=== PATIENT | male | born 2000 | race Two or more races ===

== ENCOUNTER 2018-06-16 19:22 | Emergency (ER) | payer SELFPAY ==
[~2018-06-16] VITALS: Ht 170.2 cm; Wt 54.0 kg
[2018-06-16] MEDS ORDERED: NKM (19:45)
[2018-06-16 19:49] VITALS: BP 103/62
[2018-06-16] MEDS ORDERED: TEMOVATE15 GM TOP (20:27)
[2018-06-16 20:30] VITALS: BP 103/62
--- NOTE | 2018-06-17 14:52 | Emergency Room Report ---
History of Present Illness General Chief Complaint: Skin Rash/Abscess Source: Patient Present Illness HPI 17-year-old male presents ED complaining of rash. States there is a rash to his bilateral axilla times one week. States that he used a cream that his mother gave him but states there is no help. Does not know the name of the cream. Denies any pain. Denies any fevers or chills. Denies any sick contacts or recent travel. No other aggravating relieving factors. Denies any other associated symptoms Allergies: Coded Allergies: No Known Allergies (Unverified , 06/16/18) Patient History Past Medical History: none Past Surgical History: none Pertinent Family History: none Social History: Denies: smoking, alcohol use, drug use Immunizations: UTD Reviewed Nursing Documentation: PMH: Agreed; PSxH: Agreed Nursing Documentation-PMH Past Medical History: No Stated History Review of Systems All Other Systems: negative except mentioned in HPI Physical Exam Vital Signs Date Time Temp Pulse Resp B/P (MAP) Pulse Ox O2 Delivery O2 Flow Rate FiO2 06/16/18 19:40 98.1 109 18 103/62 97 Room Air 98.1 Sp02 EP Interpretation: reviewed, normal General Appearance: no apparent distress, alert, GCS 15, non-toxic Head: normocephalic Eyes: bilateral eye normal inspection, bilateral eye PERRL ENT: normal ENT inspection Neck: normal inspection Respiratory: normal inspection Cardiovascular #1: normal inspection Gastrointestinal: normal inspection Rectal: deferred Genitourinary: no CVA tenderness Musculoskeletal: normal inspection Neurologic: alert, oriented x3, responsive, motor strength/tone normal, sensory intact, speech normal Psychiatric: judgement/insight normal, memory normal, mood/affect normal, no suicidal/homicidal ideation Skin: rash - diffuse axillary rash. multiple erythematous satelite lesions with raised edges, central clearing Lymphatic: normal inspection Medical Decision Making Diagnostic Impression: Primary Impression: Rash and other nonspecific skin eruption ER Course Hospital Course 17-year-old male presents to ED with rash to axilla Differential diagnoses include: Cellulitis, dermatitis, insect bite, abscess Clinical course Patient placed on stretcher. After initial history, physical exam reveals a male in no acute distress. On exam there is diffuse rash to bilateral axilla. Consistent of multiple raised papules with central clearing. We will prescribe clobetasol Close follow-up with PMD or dermatology Diagnosis - rash stable and discharged to home with prescription for clobetasol. Instructed to followup with PMD. Instructed return to ED if symptoms recur or worsen Last Vital Signs Date Time Temp Pulse Resp B/P (MAP) Pulse Ox O2 Delivery O2 Flow Rate FiO2 06/16/18 20:30 98.1 84 18 103/62 97 Room Air 98.1 Status: improved Disposition: HOME, SELF-CARE Condition: Stable Scripts Clobetasol Propionate (Clobetasol Propionate) 15 Gm Oint...g. 1 APPLIC TOP TWICE A DAY, #15 GM Prov: Justyn Guerra MD 06/16/18 Referrals: NOT CHOSEN IPA/,REFERRING (PCP) Patient Instructions: Justyn Guadalupe MD Jun 17, 2018 14:52
== END 2018-06-16 20:30 | disposition home or self-care (01) ==
LOC: EMR 20:02
DX: R21 Rash and other nonspecific skin eruption (principal)
CPT/HCPCS: 99282